=== PATIENT | female | born 1980 | race Hispanic/Latino ===

== ENCOUNTER 2024-03-29 18:48 | Emergency (ER) | payer OTHER ==
[~2024-03-29] VITALS: Ht 162.6 cm; Wt 61.2 kg
[2024-03-29 19:31] LABS: BASOPHILS # (AUTO) 0.05 K/uL (0.00-0.20); BASOPHILS % (AUTO) 0.4 % (0.0-5.0); EOSINOPHILS # (AUTO) 0.19 K/uL (0.00-0.70); EOSINOPHILS % (AUTO) 1.6 % (0.0-8.0); HEMATOCRIT 36.5 % (36-48); IMMATURE GRANULOCYTE ABSOLUTE 0.04 K/uL (0-1); LYMPHOCYTES # (AUTO) 3.8 K/uL (1.0-4.8); LYMPHOCYTES % (AUTO) 31.7 % (21.0-51.0); MEAN CORPUSCULAR HEMOGLOBIN 30.2 pg (27.0-33.0); MEAN CORPUSCULAR HGB CONC 33.4 g/dL (32.0-36.0); MEAN CORPUSCULAR VOLUME 90.3 fL (79-99); MONOCYTES % (AUTO) 8.1 % (3.0-13.0); NEUTROPHILS # (AUTO) 6.9 K/uL (1.8-7.7); NEUTROPHILS % (AUTO) 57.9 % (40.0-77.0); PLATELET COUNT (AUTO) 300 K/uL (130-400); RED BLOOD CELL COUNT(AUTO) 4.04 MIL/uL (4.00-5.50); RED CELL DISTRIBUTION WIDTH 13.6 % (11.0-15.5); WHITE BLOOD COUNT (AUTO) 11.9 K/uL (4.8-10.8)
[2024-03-29 19:41] LABS: APPEARANCE,URINE CLEAR (CLEAR); BILIRUBIN,URINE NEGATIVE (NEGATIVE); COLOR,URINE YELLOW (YELLOW); GLUCOSE, URINE (UA) NEGATIVE (NEGATIVE); KETONES,URINE NEGATIVE (NEGATIVE); LEUKOCYTE ESTERASE ,URINE NEGATIVE Leu/uL (NEGATIVE); NITRATE,URINE NEGATIVE (NEGATIVE); OCCULT BLOOD,URINE SMALL (NEGATIVE); PROTEIN,URINE NEGATIVE (NEGATIVE); UROBILINOGEN,URINE 0.2 mg/dL (0.2-1.0)
[2024-03-29 19:41] LABS: CARBON DIOXIDE 27 mmol/L (21-32); CHLORIDE 102 mmol/L (101-111); CREATININE 0.7 mg/dL (0.5-1.0); GLOMERULAR FILTR. RATE CALC 109 mL/min (>90); GLUCOSE,RANDOM 88 mg/dL (70-105); POTASSIUM 3.2 mmol/L (3.5-5.1); SODIUM SERUM 140 mmol/L (136-145); UREA NITROGEN, BLOOD 14 mg/dL (7-18)
[2024-03-29 19:43] LABS: ADD UA MICROSCOPIC YES
[2024-03-29 19:48] LABS: CREATINE KINASE, TOTAL 27 U/L (21-232)
[2024-03-29] MEDS: MAG/ALUM/SIMETH 30 ML UDCUP PO ONE (19:49)
[2024-03-29] MEDS: LIDOCAINE HCL 2% VISCOUS 15 ML UDCUP PO ONE (19:49)
[2024-03-29 20:03] LABS: BACTERIA,URINE RARE /HPF (None Seen); SQUAMOUS EPITHELIAL CELL,UR FEW /HPF (0-2); WBC,URINE 0-1 /HPF (0-1)
[2024-03-29 20:13] VITALS: BP 121/70; PULSE 71; RESP 16; O2SAT 99
[2024-03-29] MEDS ORDERED: PANT40TA55 PO (20:48)
== END 2024-03-29 21:02 | disposition home or self-care (01) ==
LOC: EDH 18:48
DX: K21.9 Gastro-esophageal reflux disease without esophagitis (principal)
CPT/HCPCS: 36415; 71045; 80048; 81001; 82550; 83690; 83735; 84484; 84703; 85025; 93005

== ENCOUNTER 2024-09-08 00:13 | Emergency (ER) | payer OTHER ==
[~2024-09-08] VITALS: Ht 157.5 cm; Wt 64.9 kg
[~2024-09-08 00:13] MED LIST: PANT40TA55 PO
[2024-09-08 00:15] VITALS: TEMP 98.7
--- NOTE | 2024-09-08 00:48 | ERN ---
ED Note History of Present Illness Stated Complaint: VAGINAL BLEEDING Chief Complaint: Vaginal Bleeding Time Seen by MD: 00:35 Dictation: Patient is a 43-year-old female here that it six weeks states she is having painless spotting onset tonight. She states she went to a local urgent care on Monday and was told she was , then went to [place] when she could not find an senior field service engineer doctor over here to deliver her baby. She was told him [place] via ultrasound she was six weeks and to find a doctor in [place]. Patient's at bedside states they could not find anybody and they do not have a primary care doctor here in [place]. Allergies: Coded Allergies: No Known Allergies (Unverified Allergy, Unknown, 03/29/24) Home Meds Active Scripts Pantoprazole Sodium (Protonix) 40 Mg Ectab, 40 MG PO DAILY for 30 Days, #30 TAB.EC Prov:RENETTA AC MD 03/29/24 Past Medical History Past Medical History: No Pertinent History, Other Additional Past Medical Hx: GASTRITIS Surgical History: None PSYCH History: no pertinent psych hx LMP: Jul 22, 2024 : 1 RN Note Reviewed/Agreed w/PFSH: Yes Review of System Dictation CONSTITUTIONAL: Negative except for HPI HEAD/FACE: Negative except for HPI EENT: Negative except for HPI RESPIRATORY: Negative except for HPI GASTROINTESTINAL/ABDOMINAL: Negative except for HPI GENITOURINARY: Negative except for HPI vaginal bleeding MUSCULOSKELETAL: Negative except for HPI INTEGUMENTARY: Negative except for HPI NEUROLOGICAL/PSYCH: Negative except for HPI HEMATOLOGIC/LYMPHATIC: Negative except for HPI All Systems Negative, Except as noted above. 13 point review of systems assessed and all negative except for above. Initial Vital Sign VS Vital Signs Date Time Temp Pulse Resp B/P (MAP) Pulse Ox O2 Delivery O2 Flow Rate FiO2 09/08/24 00:15 98.8 70 16 101/68 100 Room Air 09/08/24 01:36 0 21 Physical Exam Dictation Vital Signs reviewed General Appearance: Alert, oriented x 3, no acute distress, well developed, nourished. Head and Face: non-traumatic. Eyes: PERRL, pink conjunctivas, eyelid no trauma, anterior chamber with arcus senilis. Ears: Pinnas intact and no signs of trauma or erythema ear canals clear and no discharge TM no erythema Nose: No discharge, no bleeding. Oropharynx: Mouth normal, tongue pink, pharynx clear,no erythema, tonsils no exudates, no abscesses noted, mucous membrane moist Neck: Supple, non-tender, no thyromegaly, no masses, no JVD, no bruits Breast:Deferred Chest:No tenderness, no crepitus, no paradoxical movement, no retractions Lungs:Clear, well-ventilated, symmetric, no rales, no wheezing, no rhonchi, no stridor, good breath sounds bilaterally Heart: Regular rate, regular rhythm, no murmur, no gallops Vascular: no peripheral edema, Abdomen: Soft, positive bowel sounds, nondistended, no guarding, nontender, no rebound, no masses no hepatomegaly, no splenomegaly, no Swift's sign, no hernias. Rectal: Deferred Genital: Deferred Neurological: Normal speech, motor function intact, sensory function intact Musculoskeletal: Neck nontender, full range of motion, back nontender, full range of motion, Extremities: nontender, full range of motion Skin: Color pink, dry, no turgor, no rash, no lacerations, no abrasions, no contusions. Lymphatic: Deferred Results (Laboratory/Radiology) Laboratory/Radiology Laboratory Tests Test 09/08/24 00:29 09/08/24 00:37 Sodium Level 133 mmol/L (136-145) L Potassium Level 3.5 mmol/L (3.5-5.1) Chloride Level 99 mmol/L (101-111) L Carbon Dioxide Level 27 mmol/L (21-32) Blood Urea Nitrogen 16 mg/dL (7-18) Creatinine 0.6 mg/dL (0.5-1.0) Glomerular Filtration Rate Calc 113 mL/min (>90) Random Glucose 93 mg/dL (70-105) Total Calcium 8.7 mg/dL (8.5-10.1) Human Chorionic Gonadotropin, Quant 201663 mIU/mL (0-5) H White Blood Count 14.0 K/uL (4.8-10.8) H Red Blood Count 3.71 MIL/uL (4.00-5.50) L Hemoglobin 11.2 g/dL (12.0-16.0) L Hematocrit 33.1 % (36-48) L Mean Corpuscular Volume 89.2 fL (79-99) Mean Corpuscular Hemoglobin 30.2 pg (27.0-33.0) Mean Corpuscular Hemoglobin Concent 33.8 g/dL (32.0-36.0) Red Cell Distribution Width 14.2 % (11.0-15.5) Platelet Count 260 K/uL (130-400) Mean Platelet Volume 10.3 fL (7.5-10.5) Immature Granulocyte % (Auto) 0.4 % (0-1) Neutrophils (%) (Auto) 68.7 % (40.0-77.0) Lymphocytes (%) (Auto) 22.7 % (21.0-51.0) Monocytes (%) (Auto) 7.6 % (3.0-13.0) Eosinophils (%) (Auto) 0.3 % (0.0-8.0) Basophils (%) (Auto) 0.3 % (0.0-5.0) Neutrophils # (Auto) 9.6 K/uL (1.8-7.7) H Lymphocytes # (Auto) 3.2 K/uL (1.0-4.8) Monocytes # (Auto) 1.1 K/uL (0.1-1.0) H Eosinophils # (Auto) 0.04 K/uL (0.00-0.70) Basophils # (Auto) 0.04 K/uL (0.00-0.20) Absolute Immature Granulocyte (auto 0.06 K/uL (0-1) Nucleated Red Blood Cells 0.0 % (0.0-0.19) 0158 OB ULTRASOUND DEMONSTRATES IUP, SIX WEEKS SIX DAYS, HEART RATE 123, Labs Reviewed?: Yes ED Course ED Course Orders Procedure Category Date Status Time Vital Signs Per CPOE 09/08/24 Transmitted Routine 00:16 Cbc With Differential LAB 09/08/24 Complete 00:16 Type And Screen BBK 09/08/24 Complete 00:16 Iv Insertion CPOE 09/08/24 Transmitted 00:16 Basic Metabolic Panel LAB 09/08/24 Complete 00:16 Hcg,Quantitative LAB 09/08/24 Complete 00:16 Us Ob <14 Weeks US 09/08/24 Taken 00:16 *Nursing CPOE 09/08/24 Transmitted Communication: 00:46 Vital Signs Date Time Temp Pulse Resp B/P (MAP) Pulse Ox O2 Delivery O2 Flow Rate FiO2 09/08/24 01:36 70 18 112/60 100 Room Air* 0 21 09/08/24 00:15 98.8 70 16 101/68 100 Room Air 0 200 SPOKE WITH THE AND PATIENT THEY DO NOT WANT ADD PELVIC PERFORMED AT THIS TIME. THEY STATE THEY WILL FOLLOW UP WITH HER CHILD SUPPORT OFFICER DOCTOR IN THE NEXT FEW DAYS. THEY WILL BE PROVIDED WITH DR. BOYER'S NAME Medical Decision Making MDM MEDICAL DISCHARGE MAKING BASED ON ULTRASOUND FOR OB AND LABS. PATIENT HAS A VIABLE IUP SHE WILL BE DISCHARGED HOME TO TAKE VITAMINS/[id number], PELVIC REST FOLLOW UP WITH DR. BOYER IN THE NEXT FEW DAYS AND CALL FOR AN APPOINTMENT. ALSO TYLENOL ONLY FOR PAIN AND NO ALCOHOL NO TOBACCO NO [id number] MEDICATIONS TO UNTIL CLEARED BY OB. DX & DISP Disposition: Discharge Departure Impression: Primary Impression: Vaginal bleeding before 22 weeks gestation Condition: Stable Additional Instructions: FOLLOW-UP WITH PRIMARY CARE PROVIDER IN 1 TO 2 DAYS. TAKE MEDICATIONS DIRECTED HERE IN THE EMERGENCY ROOM. OKAY TO CONTINUE HOME MEDICATIONS UNLESS OTHERWISE DISCUSSED DURING YOUR VISIT IN THE EMERGENCY ROOM TODAY. RETURN TO YOUR NEAREST EMERGENCY ROOM IF SYMPTOMS WORSEN OR IF THERE IS NO IMPROVEMENT. CALL 911 IF YOU NEED IMMEDIATE ASSISTANCE. TAKE TYLENOL [id number] NEEDED AND IF NO CONTRAINDICATIONS ARE PRESENT. INCREASE ORAL HYDRATION. A WOUND CULTURE OR URINE CULTURE WAS ORDERED HERE IN THE EMERGENCY ROOM DEPARTMENT PLEASE FOLLOW-UP WITH PRIMARY CARE PROVIDER AND ADVISE THEM TO GET REPEAT PORTS FROM OUR FACILITY. IF YOU HAD ANY SOPHIE WRAP/SPLINTS THAT WERE APPLIED HERE, PLEASE DO NOT REMOVE THEM UNTIL YOU SEE YOUR PRIMARY CARE OR SPECIALTY. PELVIC REST AND NO SEX UNTIL CLEARED BY YOUR CHILD SUPPORT OFFICER DOCTOR. CONTINUE VITAMINS [id number] AND TYLENOL ONLY FOR PAIN. NO ALCOHOL, NO TOBACCO, NO [id number] MEDICATIONS UNTIL CLEARED BY YOUR CHILD SUPPORT OFFICER DOCTOR, CALL FOR AN APPOINTMENT ON MONDAY. Referrals: SELF,REFERRAL (PCP) RAY BOYER MD Time of Disposition: 02:00 I have reviewed the case, and I agree with, Diagnosis and Plan ALFRED ADORNO NP Sep 08, 2024 00:48
[2024-09-08 00:50] LABS: BASOPHILS # (AUTO) 0.04 K/uL (0.00-0.20); BASOPHILS % (AUTO) 0.3 % (0.0-5.0); EOSINOPHILS # (AUTO) 0.04 K/uL (0.00-0.70); EOSINOPHILS % (AUTO) 0.3 % (0.0-8.0); HEMATOCRIT 33.1 % (36-48); IMMATURE GRANULOCYTE ABSOLUTE 0.06 K/uL (0-1); LYMPHOCYTES # (AUTO) 3.2 K/uL (1.0-4.8); LYMPHOCYTES % (AUTO) 22.7 % (21.0-51.0); MEAN CORPUSCULAR HEMOGLOBIN 30.2 pg (27.0-33.0); MEAN CORPUSCULAR HGB CONC 33.8 g/dL (32.0-36.0); MEAN CORPUSCULAR VOLUME 89.2 fL (79-99); MONOCYTES # (AUTO) 1.1 K/uL (0.1-1.0); MONOCYTES % (AUTO) 7.6 % (3.0-13.0); NEUTROPHILS # (AUTO) 9.6 K/uL (1.8-7.7); NEUTROPHILS % (AUTO) 68.7 % (40.0-77.0); PLATELET COUNT (AUTO) 260 K/uL (130-400); RED BLOOD CELL COUNT(AUTO) 3.71 MIL/uL (4.00-5.50); RED CELL DISTRIBUTION WIDTH 14.2 % (11.0-15.5)
[2024-09-08 00:55] LABS: CREATININE 0.6 mg/dL (0.5-1.0); POTASSIUM 3.5 mmol/L (3.5-5.1)
[2024-09-08 01:36] VITALS: BP 112/60; PULSE 70; RESP 18; O2SAT 100
--- NOTE | 2024-09-08 07:53 | HMCIMG ---
US OB <14 WEEKS HISTORY: Vaginal bleeding COMPARISON: None TECHNIQUE: Obstetrical ultrasound study was performed. FINDINGS: The uterus measures 7.7 x 5.8 x 6.5 centimeter. Right ovary is not well visualized. Left ovary measures 3.3 x 1.4 x 3.4 centimeter. Flow is seen in left ovary. There is single intrauterine gestation with estimated gestational age of 6 weeks and 6 days. heart rate is 122 beats per minute. Hypoechoic round structure is seen in the right adnexa measuring 3.7 x 2.7 x 4.4 cm of questionable clinical significance. Follow-up examination would be helpful. No fluid is seen in the cul-de-sac. IMPRESSION: 1. There is single intrauterine gestation with estimated gestational age of 6 weeks and 6 days. heart rate is 122 beats per minute. Hypoechoic round structure is seen in the right adnexa measuring 3.7 x 2.7 x 4.4 cm of questionable clinical significance. Follow-up examination would be helpful.
== END 2024-09-08 02:32 | disposition home or self-care (01) ==
LOC: EDH 00:13
DX: O20.9 Hemorrhage in early pregnancy, unspecified (principal); R10.2 Pelvic and perineal pain; Z3A.01 Less than 8 weeks gestation of pregnancy; Z79.899 Other long term (current) drug therapy
CPT/HCPCS: 36415; 76801; 80048; 84702; 85025; 86850; 86900; 86901; 99284

== ENCOUNTER 2024-11-02 17:35 | Emergency (ER) | payer OTHER ==
[~2024-11-02] VITALS: Ht 152.4 cm; Wt 65.8 kg
--- NOTE | 2024-11-02 17:50 | ERN ---
ED Note History of Present Illness Stated Complaint: 14WKS PREG , SEVERE ABD PAIN Chief Complaint: Abdominal Pain in Time Seen by MD: 17:37 Dictation: PATIENT IS A 44-YEAR-OLD FEMALE STATES SHE IS 4 WEEKS , SEES DR. OMAIRA RODRIGUEZ. SHE STATES SHE IS HAVING LOWER PELVIC PAIN WITHOUT CONTRACTIONS OR VAGINAL BLEEDING ONSET TODAY. SHE STATES SHE WENT TO [facility] TODAY AND WAS TOLD BY THE BUSINESS OFFICE THAT THEY DID NOT TAKE HER INSURANCE. SHE DOES STATE THAT HER HIGH SCHOOL LEARNING SUPPORT TEACHER DOCTOR PLANS ON DELIVERING HER AT [facility]. Allergies: Coded Allergies: No Known Allergies (Unverified Allergy, Unknown, 03/29/24) Home Meds Active Scripts Pantoprazole Sodium (Protonix) 40 Mg Ectab, 40 MG PO DAILY for 30 Days, #30 TAB.EC Prov:RENETTA AC MD 03/29/24 Past Medical History Past Medical History: No Pertinent History, Other Additional Past Medical Hx: GASTRITIS Surgical History: None : 1 Para: 0 RN Note Reviewed/Agreed w/PFSH: Yes Review of System Dictation CONSTITUTIONAL: NEGATIVE EXCEPT FOR HPI HEAD/FACE: NEGATIVE EXCEPT FOR HPI EENT: NEGATIVE EXCEPT FOR HPI RESPIRATORY: NEGATIVE EXCEPT FOR HPI GASTROINTESTINAL/ABDOMINAL: NEGATIVE EXCEPT FOR HPI GENITOURINARY: NEGATIVE EXCEPT FOR HPI PELVIC CRAMPING MUSCULOSKELETAL: NEGATIVE EXCEPT FOR HPI INTEGUMENTARY: NEGATIVE EXCEPT FOR HPI NEUROLOGICAL/PSYCH: NEGATIVE EXCEPT FOR HPI HEMATOLOGIC/LYMPHATIC: NEGATIVE EXCEPT FOR HPI ALL SYSTEMS NEGATIVE, EXCEPT NOTED ABOVE. 13 POINT REVIEW OF SYSTEMS ASSESSED AND ALL NEGATIVE EXCEPT FOR ABOVE. Initial Vital Sign VS Vital Signs Date Time Temp Pulse Resp B/P (MAP) Pulse Ox O2 Delivery O2 Flow Rate FiO2 11/02/24 17:47 98.1 91 16 117/70 99 Room Air 0 11/02/24 18:21 21 Physical Exam Dictation VITAL SIGNS REVIEWED GENERAL APPEARANCE: ALERT, ORIENTED X 3, MILD ACUTE DISTRESS, WELL DEVELOPED, NOURISHED. HEAD AND FACE: NON-TRAUMATIC. EYES: PERRL, PINK CONJUNCTIVAS, EYELID NO TRAUMA, ANTERIOR CHAMBER WITH ARCUS SENILIS. EARS: PINNAS INTACT AND NO SIGNS OF TRAUMA OR ERYTHEMA EAR CANALS CLEAR AND NO DISCHARGE TM NO ERYTHEMA NOSE: NO DISCHARGE, NO BLEEDING. OROPHARYNX: MOUTH NORMAL, TONGUE PINK, PHARYNX CLEAR,NO ERYTHEMA, TONSILS NO EXUDATES, NO ABSCESSES NOTED, MUCOUS MEMBRANE MOIST NECK: SUPPLE, NON-TENDER, NO THYROMEGALY, NO MASSES, NO JVD, NO BRUITS BREAST:DEFERRED CHEST:NO TENDERNESS, NO CREPITUS, NO PARADOXICAL MOVEMENT, NO RETRACTIONS LUNGS:CLEAR, WELL-VENTILATED, SYMMETRIC, NO RALES, NO WHEEZING, NO RHONCHI, NO STRIDOR, GOOD BREATH SOUNDS BILATERALLY HEART: REGULAR RATE, REGULAR RHYTHM, NO MURMUR, NO GALLOPS VASCULAR: NO PERIPHERAL EDEMA, ABDOMEN: SOFT, POSITIVE BOWEL SOUNDS, NONDISTENDED, NO GUARDING, NONTENDER, NO REBOUND, NO MASSES NO HEPATOMEGALY, NO SPLENOMEGALY, NO GOMEZ'S SIGN, NO HERNIAS. RECTAL: DEFERRED GENITAL: DEFERRED NEUROLOGICAL: NORMAL SPEECH, MOTOR FUNCTION INTACT, SENSORY FUNCTION INTACT MUSCULOSKELETAL: NECK NONTENDER, FULL RANGE OF MOTION, BACK NONTENDER, FULL RANGE OF MOTION, EXTREMITIES: NONTENDER, FULL RANGE OF MOTION SKIN: COLOR PINK, DRY, NO TURGOR, NO RASH, NO LACERATIONS, NO ABRASIONS, NO CONTUSIONS. LYMPHATIC: DEFERRED Results (Laboratory/Radiology) Laboratory/Radiology Laboratory Tests Test 11/02/24 18:18 11/02/24 18:51 Urine Color YELLOW (YELLOW) Urine Appearance HAZY (CLEAR) Urine pH 6.0 (5.0-8.0) Urine Specific Leonard 1.032 (1.001-1.031) Urine Protein 20 mg/dL (NEGATIVE) H Urine Glucose (UA) 500 mg/dL (NEGATIVE) H Urine Ketones 5 mg/dL (NEGATIVE) H Urine Occult Blood MODERATE (NEGATIVE) H Urine Nitrate NEGATIVE (NEGATIVE) Urine Bilirubin NEGATIVE mg/dL (NEGATIVE) Urine Urobilinogen 0.2 mg/dL (0.2-1.0) Urine Leukocyte Esterase NEGATIVE Ramila/uL Urine RBC 11-25 /HPF (0-1) H Urine WBC 0-1 /HPF (0-1) Urine Squamous Epithelial Cells MANY /HPF (0-2) Urine Bacteria RARE /HPF (None Seen) White Blood Count 12.0 K/uL (4.8-10.8) H Red Blood Count 3.42 MIL/uL (4.00-5.50) L Hemoglobin 10.7 g/dL (12.0-16.0) L Hematocrit 31.6 % (36-48) L Mean Corpuscular Volume 92.4 fL (79-99) Mean Corpuscular Hemoglobin 31.3 pg (27.0-33.0) Mean Corpuscular Hemoglobin Concent 33.9 g/dL (32.0-36.0) Red Cell Distribution Width 14.6 % (11.0-15.5) Platelet Count 250 K/uL (130-400) Mean Platelet Volume 9.8 fL (7.5-10.5) Immature Granulocyte % (Auto) 0.6 % (0-1) Neutrophils (%) (Auto) 75.5 % (40.0-77.0) Lymphocytes (%) (Auto) 15.5 % (21.0-51.0) L Monocytes (%) (Auto) 7.4 % (3.0-13.0) Eosinophils (%) (Auto) 0.8 % (0.0-8.0) Basophils (%) (Auto) 0.2 % (0.0-5.0) Neutrophils # (Auto) 9.0 K/uL (1.8-7.7) H Lymphocytes # (Auto) 1.9 K/uL (1.0-4.8) Monocytes # (Auto) 0.9 K/uL (0.1-1.0) Eosinophils # (Auto) 0.09 K/uL (0.00-0.70) Basophils # (Auto) 0.02 K/uL (0.00-0.20) Absolute Immature Granulocyte (auto 0.07 K/uL (0-1) Nucleated Red Blood Cells 0.0 % (0.0-0.19) Sodium Level 137 mmol/L (136-145) Potassium Level 4.1 mmol/L (3.5-5.1) Chloride Level 105 mmol/L (101-111) Carbon Dioxide Level 25 mmol/L (21-32) Blood Urea Nitrogen 11 mg/dL (7-18) Creatinine 0.5 mg/dL (0.5-1.0) Glomerular Filtration Rate Calc 118 mL/min (>90) Random Glucose 94 mg/dL (70-105) Total Calcium 8.7 mg/dL (8.5-10.1) Human Chorionic Gonadotropin, Quant 53250 mIU/mL (0-5) H OB ULTRASOUND DEMONSTRATES VIABLE IUP,15 WEEKS ONE DAY HEART RATE 141NO BLEED Labs Reviewed?: Yes ED Course ED Course Orders Procedure Category Date Status Time Cbc With Differential LAB 11/02/24 Complete 17:47 Hcg,Quantitative LAB 11/02/24 Complete 17:47 Us Ob <14 Weeks US 11/02/24 Taken 17:47 Type And Screen BBK 11/02/24 In Process 17:47 Basic Metabolic Panel LAB 11/02/24 Complete 17:47 Acetaminophen 500mg PHA 11/02/24 Complete Tab (Tylenol 500mg T 18:00 Urinalysis Profile LAB 11/02/24 Complete 18:14 Current Medications Medications (Trade) Dose Ordered Sig/Micah Route PRN Reason Start Time Stop Time Status Last Admin Dose Admin Acetaminophen (TYLenol 500MG TAB) 1,000 mg ONCE ONCE PO 11/02/24 18:00 11/02/24 18:01 DC 11/02/24 19:11 Vital Signs Date Time Temp Pulse Resp B/P (MAP) Pulse Ox O2 Delivery O2 Flow Rate FiO2 11/02/24 19:21 97.9 89 16 104/56 98 Room Air* 0 21 11/02/24 18:21 97.9 80 16 103/64 98 Room Air* 0 21 11/02/24 17:47 98.1 91 16 117/70 99 Room Air 0 Medical Decision Making MDM MDM: DIFFERENTIAL DIAGNOSIS: A B/INCOMPLETE A B/PAIN OF /UTI/ELECTROLYTE IMBALANCE/DEHYDRATION RATIONALE: TESTS CONSIDERED AND ORDERED SECONDARY TO SHARED DECISION MAKING INCLUDE: ULTRASOUND/LABS PREVIOUS OUTSIDE RECORDS REVIEWED: OLD ER VISITS. REVIEWED RISK OF COMPLICATION AND/OR MORBIDITY OR MORTALITY OF PATIENT MANAGEMENT: NONE NONE MEDICATIONS-PER MEDICATION RECONCILIATION NEED FOR HOSPITALIZATION: PATIENT DOES NOT MEET CRITERIA FOR HOSPITALIZATION. NO NEED FOR EMERGENCY MAJOR/MINOR SURGERY: NO THERE ARE NO SOCIAL CONCERNS WITH THIS PATIENT. PRESCRIPTION DRUG MANAGEMENT NONE PRESCRIPTIONS WILL INCLUDE SYMPTOMATIC CARE PATIENT'S PRIOR EXTERNAL MEDICAL RECORDS FROM OTHER ER VISITS WERE REVIEWED BY Jasen Arellano INDICATED. PRIOR TESTING AND RESULTS FROM PREVIOUS VISITS WERE REVIEWED. PRIOR TESTS WERE TAKEN INTO ACCOUNT WITH MEDICAL DECISION MAKING AND RESOURCE UTILIZATION, INDEPENDENT HISTORIAN/HISTORIANS WERE USED TO OBTAIN COMPLETE MEDICAL HISTORY. I INDEPENDENTLY INTERPRETED THE TEST THAT WERE PERFORMED, RESULTS WERE REVIEWED BY ME AND CONSIDERED FINDINGS ON RADIOLOGY IF ORDERED. MEDICAL MANAGEMENT AND EXAMINATION INTERPRETATION DISCUSSIONS WERE HAD BY ME WITH OTHER QUALIFIED HEALTHCARE PROFESSIONALS INDICATED FOR THE PATIENT'S CARE. DX & DISP Disposition: Discharge Departure Impression: Primary Impression: Abdominal pain in Condition: Stable Additional Instructions: FOLLOW-UP WITH PRIMARY CARE PROVIDER IN 1 TO 2 DAYS. TAKE MEDICATIONS DIRECTED HERE IN THE EMERGENCY ROOM. OKAY TO CONTINUE HOME MEDICATIONS UNLESS OTHERWISE DISCUSSED DURING YOUR VISIT IN THE EMERGENCY ROOM TODAY. RETURN TO YOUR NEAREST EMERGENCY ROOM IF SYMPTOMS WORSEN OR IF THERE IS NO IMPROVEMENT. CALL 911 IF YOU NEED IMMEDIATE ASSISTANCE. TAKE TYLENOL [id number] NEEDED AND IF NO CONTRAINDICATIONS ARE PRESENT. INCREASE ORAL HYDRATION. A WOUND CULTURE OR URINE CULTURE WAS ORDERED HERE IN THE EMERGENCY ROOM DEPARTMENT PLEASE FOLLOW-UP WITH PRIMARY CARE PROVIDER AND ADVISE THEM TO GET REPEAT PORTS FROM OUR FACILITY. IF YOU HAD ANY SOPHIE WRAP/SPLINTS THAT WERE APPLIED HERE, PLEA SE DO NOT REMOVE THEM UNTIL YOU SEE YOUR PRIMARY CARE OR SPECIALTY. CONTINUE VITAMINS. TAKE TYLENOL ONLY FOR PAIN. FOLLOW UP WITH YOUR HIGH SCHOOL LEARNING SUPPORT TEACHER DOCTOR IN 1-2 DAYS. Referrals: NONE (PCP) Time of Disposition: 19:48 I have reviewed the case, and I agree with, Diagnosis and Plan ALFRED ADORNO NP Nov 02, 2024 17:50
[2024-11-02 18:28] LABS: BILIRUBIN,URINE NEGATIVE (NEGATIVE); COLOR,URINE YELLOW (YELLOW); GLUCOSE, URINE (UA) 500 mg/dL (NEGATIVE); KETONES,URINE 5 mg/dL (NEGATIVE); LEUKOCYTE ESTERASE ,URINE NEGATIVE Leu/uL (NEGATIVE); NITRATE,URINE NEGATIVE (NEGATIVE); OCCULT BLOOD,URINE MODERATE (NEGATIVE); PROTEIN,URINE 20 mg/dL (NEGATIVE); UROBILINOGEN,URINE 0.2 mg/dL (0.2-1.0)
[2024-11-02 18:30] LABS: ADD UA MICROSCOPIC YES; APPEARANCE,URINE HAZY (CLEAR)
[2024-11-02 18:31] LABS: BACTERIA,URINE RARE /HPF (None Seen); MUCUS,URINE MOD LPF (None Seen); SQUAMOUS EPITHELIAL CELL,UR MANY /HPF (0-2); WBC,URINE 0-1 /HPF (0-1)
[2024-11-02 19:00] LABS: BASOPHILS # (AUTO) 0.02 K/uL (0.00-0.20); BASOPHILS % (AUTO) 0.2 % (0.0-5.0); EOSINOPHILS # (AUTO) 0.09 K/uL (0.00-0.70); EOSINOPHILS % (AUTO) 0.8 % (0.0-8.0); HEMATOCRIT 31.6 % (36-48); IMMATURE GRANULOCYTE ABSOLUTE 0.07 K/uL (0-1); LYMPHOCYTES # (AUTO) 1.9 K/uL (1.0-4.8); LYMPHOCYTES % (AUTO) 15.5 % (21.0-51.0); MEAN CORPUSCULAR HEMOGLOBIN 31.3 pg (27.0-33.0); MEAN CORPUSCULAR HGB CONC 33.9 g/dL (32.0-36.0); MEAN CORPUSCULAR VOLUME 92.4 fL (79-99); MONOCYTES # (AUTO) 0.9 K/uL (0.1-1.0); MONOCYTES % (AUTO) 7.4 % (3.0-13.0); NEUTROPHILS % (AUTO) 75.5 % (40.0-77.0); PLATELET COUNT (AUTO) 250 K/uL (130-400); RED BLOOD CELL COUNT(AUTO) 3.42 MIL/uL (4.00-5.50); RED CELL DISTRIBUTION WIDTH 14.6 % (11.0-15.5)
[2024-11-02] MEDS: acetaMINOPHEN 500 MG TABLET PO ONE (19:11)
[2024-11-02 19:16] LABS: CREATININE 0.5 mg/dL (0.5-1.0); POTASSIUM 4.1 mmol/L (3.5-5.1)
[2024-11-02 19:21] VITALS: BP 104/56; PULSE 89; RESP 16; TEMP 97.8; O2SAT 98
--- NOTE | 2024-11-02 20:03 | HMCIMG ---
ULTRASOUND OB LIMITED INDICATION: Viability. TECHNIQUE: Real-time transabdominal approach ultrasound examination of the pelvis was performed by the business executive, and images subsequently made available for review. COMPARISON: None FINDINGS: Single live intrauterine gestation in variable presentation. heart rate = 141 beats per minute. Posterior grade 1 placenta without previa demonstrated. The amniotic fluid volume is normal at 10.4 cm. Limited anatomy secondary to gestational age. Estimated sonographic gestational age = 15 weeks 0 days. Estimated weight = 109 grams +/- 16 grams. IMPRESSION: 1. Single live intrauterine gestation in variable presentation, and with heart rate of 141 bpm. 2. Parameters as reported.
== END 2024-11-02 19:55 | disposition home or self-care (01) ==
LOC: EDH 17:35
DX: O26.892 Other specified pregnancy related conditions, second trimester (principal); R10.2 Pelvic and perineal pain; Z3A.14 14 weeks gestation of pregnancy; Z79.899 Other long term (current) drug therapy
CPT/HCPCS: 36415; 76805; 80048; 81001; 84702; 85025; 86850; 86900; 86901; 99284